=== PATIENT | female | born 1940 | race Caucasian/White ===

== ENCOUNTER → 2016-05-16 | Outpatient (CLI) | payer MEDICARE, MEDICAID, OTHER ==
[~2016-05-16] MED LIST: BARIUM SUSPENSION 105% (LIQUID POLIBAR PLUS) 240 ML/DOSE PO ONE; BARIUM SUSPENSION 2.1% (VANILLA SILQ) 450 ML PO ONE
--- OUTSIDE RECORDS SUMMARY | 2016-05-16 11:16 | XMS REPORT | Continuity of Care Document ---
Author Author [facility] Organization [facility] Address Unknown Phone Unavailable Care Team Providers Care Sterile Tech Name Role Phone No Pcp, Na PCP Unavailable Source Comments Some departments are not documenting in the electronic medical record. If you do not see the information that you expected, contact Release of Information in the Health Information Management department at [phone] for further assistance in locating additional records.[facility] Active Allergies and Adverse Reactions No Known Allergies Current Medications Prescription Sig. Disp. Refills Start End Date Status Date albuterol (VENTOLIN HFA, Inhale 2 Puffs by mouth Active PROAIR HFA, PROVENTIL into the lungs every 6 HFA) 90 mcg/actuation hours as needed for inhaler Wheezing or Shortness of Breath. Shake well before use. lisinopril/hydrochlorothi Take 1 Tab by mouth Active azide (ZESTORETIC) daily. 20/12.5 mg tablet 1 Tab fluticasone (FLONASE) 50 Apply 2 Sprays to each Active mcg/actuation nasal spray nostril as directed daily. Shake bottle gently before using. vancomycin (#) (VANCOCIN) 5 mL four times daily. 12/30/19 Active 25 mg/mL oral solution Last day 01/07 16 amLODIPine (NORVASC) 10 Take 1 Tab via feeding 90 Tab 3 12/30/19 Active mg tablet tube daily. 16 famotidine (PEPCID) 20 mg 1 Tab daily. Crush and 180 Tab 3 12/30/19 Active tablet administer via feeding 16 tube. carvedilol (COREG) 12.5 1 Tab twice daily with 12/30/19 Active mg tablet meals. Take with food. 16 Crush and administer via feeding tube. aspirin 325 mg tablet Take 1 Tab via feeding 90 Tab 3 12/30/19 Active tube daily. Take with 16 food. cetirizine (ZYRTEC) 10 mg Take 1 Tab via feeding 90 Tab 3 12/30/19 Active tablet tube every morning. 16 simvastatin (ZOCOR) 20 mg Take 1 Tab via feeding 90 Tab 3 12/30/19 Active tablet tube at bedtime daily. 16 insulin glargine (LANTUS Inject 18 Units under the 12/30/19 Active SOLOSTAR) 100 unit/mL (3 skin at bedtime daily. 16 mL) injection PEN doxazosin (CARDURA) 1 mg Take 2 Tabs by mouth 12/30/19 Active tablet daily. 16 gabapentin (NEURONTIN) Take 6 mL by mouth at 470 mL 12 12/30/19 Active 250 mg/5 mL oral solution bedtime daily. 16 albuterol 0.5% Inhale 0.5 mL solution by 60 Vial 12/30/19 Active (PROVENTIL; VENTOLIN) 2.5 nebulizer as directed 16 mg/0.5 mL nebulizer four times daily. solution ipratropium bromide Inhale 2.5 mL by mouth 60 Vial 12/30/19 Active (ATROVENT) 0.02 % into the lungs four times 16 nebulizer solution daily. Active Problems Problem Noted Date Cerebellar infarct ([facility]) 12/16/2015 Cerebral edema ([facility]) 12/16/2015 Vertebral artery stenosis with cerebral infarction ([facility]) 12/16/2015 Acute respiratory failure with hypoxemia ([facility]) 12/16/2015 Dysarthria 12/16/2015 Leukocytosis 12/16/2015 GLENNA (acute kidney injury) ([facility]) 12/16/2015 Hypernatremia 12/16/2015 Hyperchloremia 12/16/2015 Subdural hemorrhage ([facility]) 12/13/2015 DM (diabetes mellitus screen) 12/13/2015 HTN (hypertension) 12/13/2015 HLD (hyperlipidemia) 12/13/2015 GERD (gastroesophageal reflux disease) 12/13/2015 COPD (chronic obstructive pulmonary disease) ([facility]) CKD (chronic kidney disease) Social History Tobacco Use Types Packs/Day Years Used Date Current Every Day Smoker Cigarettes 0.9 60 Alcohol Use Drinks/Week oz/Week Comments No 0 Standard 0.0 drinks or equivalent Last Filed Vital Signs Vital Sign Reading Time Taken Blood Pressure 189/61 12/30/2015 7:44 AM CDT Pulse 75 12/30/2015 7:44 AM CDT Temperature 37.7 C (99.8 F) 12/30/2015 7:44 AM CDT Respiratory Rate - - Height 1.524 m (5') 12/15/2015 4:56 PM CDT Weight 78.6 kg (173 lb 4.5 oz) 12/30/2015 5:35 AM CDT Body Mass Index 33.84 12/30/2015 5:35 AM CDT Oxygen Saturation 94% 12/30/2015 7:44 AM CDT Plan of Care Health Maintenance Due Date Last Done Comments Physical (Comprehensive) 1949 Exam Pertussis Vaccine 1953 Tetanus Vaccine 12/02/1959 Breast Cancer Screening 1982 Colorectal Cancer 1992 Screening Shingles Vaccine 2002 Osteoporosis Screening 12/02/2007 Prevnar/Pneumovax (#1) 12/02/2007 Influenza Vaccine 11/26/2015 Results from Last 3 Months Not on file
--- NOTE | 2016-05-16 17:04 | Diagnostic Imaging Report ---
INDICATION: Dysphagia and history of non-Hodgkin's lymphoma. FINDINGS: The preliminary radiograph demonstrates a normal heart size. Lungs are clear. No pleural effusion or pneumothorax. Esophageal motility was assessed fluoroscopically. There is satisfactory efficacy of primary peristaltic wave. There are no intrinsic or extrinsic esophageal masses. There is a small hiatal hernia. There is no significant gastroesophageal reflux appreciated despite evocative maneuvers. IMPRESSION: Small hiatal hernia, otherwise, unremarkable esophagram. Dictated by: Dictated on workstation # [id number]
== END ==
LOC: RAD 11:12
PROVIDERS: ATTEND Family Medicine
DX: R13.10 Dysphagia, unspecified (principal); K44.9 Diaphragmatic hernia without obstruction or gangrene; Z93.0 Tracheostomy status
CPT/HCPCS: 74220

== ENCOUNTER → 2016-06-10 | Outpatient (CLI) | payer MEDICARE, OTHER ==
--- NOTE | 2016-06-10 11:48 | Diagnostic Imaging Report ---
EXAMINATION: Modified barium swallow. Indication: Dysphagia Different consistencies of fluid and food was given mixed with barium and swallowing was visualized under fluoroscopy. FLUOROSCOPY TIME: One minutes and 20 seconds FINDINGS: No aspiration seen. Mild transient penetration seen. IMPRESSION: No aspiration seen. Please refer to speech therapist's report for additional details . Dictated by: Dictated on workstation # [id number]
== END ==
LOC: RAD 09:50
PROVIDERS: ATTEND Family Medicine
DX: R13.10 Dysphagia, unspecified (principal); Z93.0 Tracheostomy status
CPT/HCPCS: 74230

== ENCOUNTER → 2016-06-14 | Outpatient (CLI) | payer MEDICARE, OTHER | PROVIDERS: ATTEND Family Medicine | DX: R19.7 Diarrhea, unspecified (principal) | CPT/HCPCS: 87324; 87449; 87493 ==

== ENCOUNTER 2016-07-03 07:56 | Emergency (ER) | payer MEDICARE, OTHER ==
[~2016-07-03] VITALS: Ht 162.6 cm; Wt 102.1 kg
[2016-07-03 07:56] VITALS: BP 0/0
[2016-07-03] MEDS ORDERED: NOREPINEPHRINE 4 MG/4 ML (LEVOPHED) AMP IV ONE (08:19)
[2016-07-03] MEDS ORDERED: D5W 250 ML (IVPB) 250 ML IV ONE (08:19)
[2016-07-03] MEDS ORDERED: EPINEPHrine 0.1 MG/ML 10 ML (HOSPIRA) SYR ONE (08:20)
[2016-07-03] MEDS ORDERED: NS 1000 ML IV BAG ONE (08:20)
[2016-07-03] MEDS ORDERED: SODIUM BICARB 8.4% 50 MEQ/50 ML (ABBOTT) SYR ONE (08:20)
[2016-07-03] MEDS ORDERED: CATHETER FLUSH 10 ML SYR ONE (08:20)
[2016-07-03] MEDS ORDERED: HEParin 1000 UNIT/ML (10ML VIAL) FOR BOLUS ONE (08:25)
[2016-07-03] MEDS ORDERED: HEParin DRIP 25000 UNIT/500ML 500 ML IV ONE (08:25)
[2016-07-03 08:37] LABS: ABG BASE EXCESS -9.2 MMOL/L (-2.5-2.5); ABG HCO3 22 MMOL/L (23-27); ABG OXYGEN SATURATION 83 % (94-100); ABG PO2 69 MMHG (79-93); ABG TCO2 25.5 MMOL/L (21.0-31.0)
[2016-07-03 08:39] LABS: ABG PCO2 104 MMHG (35-45); ABG PH 6.94 (7.37-7.43)
[2016-07-03 08:40] LABS: ALLENS TEST POS; PATIENT TEMP 95.9
[2016-07-03 08:42] LABS: BASOPHILS # (AUTO) 0.1 10^3/uL (0.0-0.1); BASOPHILS % (AUTO) 1 % (0-10); EOSINOPHILS # (AUTO) 0.1 10^3/uL (0.0-0.3); EOSINOPHILS % (AUTO) 0 % (0-10); LYMPHOCYTES # (AUTO) 4.2 X 10^3 (1.0-4.0); LYMPHOCYTES % (AUTO) 26 % (12-44); MEAN CORPUSCULAR HEMOGLOBIN 27 PG (25-34); MEAN CORPUSCULAR HGB CONC 30 G/DL (32-36); MEAN CORPUSCULAR VOLUME 89 FL (80-99); MEAN PLATELET VOLUME 10.5 FL (7.4-10.4); MONOCYTES # (AUTO) 0.9 X 10^3 (0.0-1.0); MONOCYTES % (AUTO) 5 % (0-12); NEUTROPHILS % (AUTO) 68 % (42-75); PLATELET COUNT 230 10^3/uL (130-400); RED BLOOD COUNT 3.17 10^6/uL (4.35-5.85); RED CELL DISTRIBUTION WIDTH 18.5 % (10.0-14.5); WHITE BLOOD COUNT 16.2 10^3/uL (4.3-11.0)
[2016-07-03 08:51] LABS: INR 1.8 (0.8-1.4); PROTHROMBIN TIME PATIENT 20.6 SEC (12.2-14.7)
[2016-07-03 08:54] LABS: BAND NEUTROPHILS 6 %; EOSINOPHILS % (MANUAL) 1 %; LYMPHOCYTES % (MANUAL) 23 %; NEUTROPHILS % (MANUAL) 57 %
[2016-07-03 09:01] LABS: ALBUMIN 2.2 G/DL (3.2-4.5); BILIRUBIN,TOTAL 0.3 MG/DL (0.1-1.0); CALCIUM 7.1 MG/DL (8.5-10.1); CREATININE SERUM 1.02 MG/DL (0.60-1.30); POTASSIUM 3.6 MMOL/L (3.6-5.0); TOTAL PROTEIN 4.5 G/DL (6.4-8.2)
--- NOTE | 2016-07-03 09:01 | ED CPR ---
HPI-CPR General Chief Complaint: Cardiac Arrest Stated Complaint: UNRESPONSIVE Source of Information: EMS, Family Exam Limitations: Other (intubated) History of Present Illness Time Seen by Provider: 07:53 Initial Comments The patient was brought to the ER by EMS in a state of cardiac arrest with chest compressions. History given that the patient was down at the longterm about 7:15 and I called CPR was initiated and an AED delivered shocks 1. EMS reports the patient's been in pulseless electrical activity and they have given 2 doses of epinephrine through an IO in the left tibia plateau. They have pushed 500 cc normal saline and given 1 amp of bicarbonate. The patient had a pertinent history of being in the longterm after a stroke in November 2015 of unknown etiology. The patient was currently being treated for C. difficile colitis. CODE STATUS was unknown and paperwork was not brought from the longterm by EMS. No family was present at that time. Witnessed Arrest: Yes Bystander CPR: Yes Down-Time Before ACLS: unknown Paramedics Initial Findings: No Pulse, No Respirations, PEA Tachycardia, Unresponsive Pre Hospital Treatment: CPR/Thumper, Defibrillation (by AED x1), Intubation ( combitube), Oxygen, IV Fluids (500cc), Epinephrine (mg) (2), Sodium Bicarb (amps ) (1) Allergies and Home Medications Allergies Coded Allergies: No Allergy Information Available (Unverified , 05/16/16) Review of Systems Constitutional: see HPI (Pt intubated and non responsive on arrival and unable to give an ROS) Physical Exam Vital Signs Vital Sign - Last 12Hours 07/03/16 07:56 Temp 95.9 Pulse 0 Resp 0 B/P (MAP) 0/0 Pulse Ox 0 Capillary Refill : General Appearance: Severe Distress, Other (PEA without spontaneous RR. ) HEENT: Other (Pupils equal 4 mm nonreactive and. No response to noxious stimuli. OG pulling Brown loose material as well as bright red blood) Neck: Full Range of Motion, Normal Inspection, Supple Respiratory: Lungs Clear, Other (Combitube in place with breath sounds bilaterally ventilated by bag valve mask.) Cardiovascular: Other (pulseless electrical activity with chest compressions per EMS and ED personnel) Gastrointestinal: Soft, Abnormal Bowel Sounds (absent), Distended Rectal: No Normal Rectal Tone, Heme Positive Stool Extremity: No Pedal Edema, Slow Capillary Refill Neurologic/Psychiatric: No Alert, No Oriented x3, Other (GCS 3) Skin: Normal Color, Warm/Dry Lymphatic: No Adenopathy Progress/Results/Core Measures Results/Orders Lab Results Laboratory Tests Test 07/03/16 08:09 07/03/16 08:15 07/03/16 08:30 Range/Units White Blood Count 16.2 H 4.3-11.0 10^3/uL Red Blood Count 3.17 L 4.35-5.85 10^6/uL Hemoglobin 8.5 L 11.5-16.0 G/DL Hematocrit 28 L 35-52 % Mean Corpuscular Volume 89 80-99 FL Mean Corpuscular Hemoglobin 27 25-34 PG Mean Corpuscular Hemoglobin Concent 30 L 32-36 G/DL Red Cell Distribution Width 18.5 H 10.0-14.5 % Platelet Count 230 130-400 10^3/uL Mean Platelet Volume 10.5 H 7.4-10.4 FL Neutrophils (%) (Auto) 68 42-75 % Lymphocytes (%) (Auto) 26 12-44 % Monocytes (%) (Auto) 5 0-12 % Eosinophils (%) (Auto) 0 0-10 % Basophils (%) (Auto) 1 0-10 % Neutrophils # (Auto) 11.0 H 1.8-7.8 X 10^3 Lymphocytes # (Auto) 4.2 H 1.0-4.0 X 10^3 Monocytes # (Auto) 0.9 0.0-1.0 X 10^3 Eosinophils # (Auto) 0.1 0.0-0.3 10^3/uL Basophils # (Auto) 0.1 0.0-0.1 10^3/uL Neutrophils % (Manual) 57 % Lymphocytes % (Manual) 23 % Monocytes % (Manual) 13 % Eosinophils % (Manual) 1 % Band Neutrophils 6 % Toxic Granulation 1+ Blood Morphology Comment NORMAL Sodium Level 146 H 135-145 MMOL/L Potassium Level 3.6 3.6-5.0 MMOL/L Chloride Level 117 H 98-107 MMOL/L Carbon Dioxide Level 10 L 21-32 MMOL/L Anion Gap 19 H 5-14 MMOL/L Blood Urea Nitrogen 19 H 7-18 MG/DL Creatinine 1.02 0.60-1.30 MG/DL Estimat Glomerular Filtration Rate 53 BUN/Creatinine Ratio 19 Glucose Level 183 H 70-105 MG/DL Calcium Level 7.1 L 8.5-10.1 MG/DL Total Bilirubin 0.3 0.1-1.0 MG/DL Aspartate Amino Transf (AST/SGOT) 67 H 5-34 U/L Alanine Aminotransferase (ALT/SGPT) 20 0-55 U/L Alkaline Phosphatase 76 40-136 U/L Total Protein 4.5 L 6.4-8.2 G/DL Albumin 2.2 L 3.2-4.5 G/DL Blood Gas Puncture Site RT RADIAL Blood Gas Patient Temperature 95.9 Arterial Blood pH 6.94 *L 7.37-7.43 Arterial Blood Partial Pressure CO2 104 *H 35-45 MMHG Arterial Blood Partial Pressure O2 69 L 79-93 MMHG Arterial Blood HCO3 22 L 23-27 MMOL/L Arterial Blood Total CO2 25.5 21.0-31.0 MMOL/L Arterial Blood Oxygen Saturation 83 L 94-100 % Arterial Blood Base Excess -9.2 L -2.5-2.5 MMOL/L Mac Test POS Blood Gas Ventilator Setting NO Blood Gas Inspired Oxygen 100% Prothrombin Time 20.6 H 12.2-14.7 SEC INR Comment 1.8 H 0.8-1.4 Activated Partial Thromboplast Time 53 H 24-35 SEC My Orders Orders - GILDA MENDOZA D5w 250 Ml (Ivpb) (Dextrose 5% Water Iv (07/03/16 08:19) Norepinephrine (Levophed) (07/03/16 08:19) Arterial Blood Gas (07/03/16 08:25) Cbc With Automated Diff (07/03/16 08:25) Comprehensive Metabolic Panel (07/03/16 08:25) Heparin (Bolus Per Protocol) (Heparin (B (07/03/16 08:25) Heparin Drip 98627 Unit/500ml (Heparin (07/03/16 08:25) Type And Screen (07/03/16 08:31) Partial Thromboplastin Time (07/03/16 08:34) Protime With Inr (07/03/16 08:34) Manual Differential (07/03/16 08:09) Medications Given in ED Current Medications Medications Dose Ordered Sig/Heide Route Start Time Stop Time Status Last Admin Dose Admin Dextrose/Water 250 ml @ STK-MED ONCE IV 07/03/16 08:19 07/03/16 08:22 DC 07/03/16 08:24 40 MLS/HR Norepinephrine 4 mg STK-MED ONCE IV 07/03/16 08:19 07/03/16 08:22 DC 07/03/16 08:24 4 MG Vital Signs/I&O Vital Sign - Last 12Hours 07/03/16 07:56 Temp 95.9 Pulse 0 Resp 0 B/P (MAP) 0/0 Pulse Ox 0 Critical Care Note Critical Care Start Time: 07:53 Stop Time: 08:43 Total Time (minutes) 50 minutes Date of : Jul 03, 2016 Time of : 08:43 Progress Patient was found approximately 710 at medical [facility] in [place] by staff and hypovolemia CPR was initiated as well as an IV was placed and 1 shock was advised and delivered before EMS arrived. EMS then continued CPR getting 2 doses of epinephrine 1 mg and 1 amp of bicarbonate en route to the ER. When she arrived the patient was actively undergoing ACLS protocol with a Combitube in place. We continued 1 mg IV epinephrine through the IO in her left tibial plateau every 3 minutes establish a new IV site in her right antecubital space and continued pushing fluids under pressure bag. She received one half liter prior to arrival. We replaced the Combitube with a more stable 7.5 ET tube at 22 at the lips with good bilateral breath sounds positive color change on capnography paper direct visualization using a guided video laryngoscope of this tube passing the larynx and vocal cords and no gas sounds on respiration by [id number] over the epigastrium. Patient's sats improved from 69% at that point up to the mid 80s which is as high as they ever got. Her abdomen was distended so a NG tube was dropped and placed to suction which pulled out copious amount of brown oral gastric secretions and eventually started showing bright red blood. The given history of C. difficile colitis under treatment as well as a stroke in November 2015 was reviewed. It was also noted the patient had scars from an old PEG tube and tracheostomy not currently in use and a scopolamine patch on her right side of her head behind the ear. A second amp of bicarbonate was given and the patient had return of spontaneous circulation at around epinephrine No. 7 (0816). Blood pressure is obtained 120s over 80s on the left arm. Capnography was initiated in the patient's respirations were transferred over to the ventilator. EKG obtained showed significant ST depression in anterior lateral leads labs were already obtained an ABG showed pH of 6.94. Levophed was initiated at 10 mcg/m and titrated up to a karena of 15. About this time the granddaughter arrived and I left speak with her. She explained that the patient's wishes were to be DO NOT RESUSCITATE and she was okay with what we have done to get her back but if the heart was to stop again the granddaughter agreed that the patient would not want to be resuscitated. At this time she wanted us to do everything we could to keep her alive. The very dire prognosis was explained to the family. She stated other family was on their way that would be an hour or more. Because of the ST depression and a troponin was obtained and fecal occult was positive and there is obvious logan blood coming from the OG tube so we typed and crossed her and prepared start her on a heparin drip to try and protect the heart. As we are trying to establish central line access as the only access we had was a right before meals 18-gauge and left tibial IO the patient bradyed down despite going up on the Levophed patient went back into asystole. At 0843 the patient had no heart tones, spontaneous respiration, reaction to corneal palpation or other signs of life and was thus declared and in accordance with her wishes to not be resuscitated we allow natural . Family was brought back and questions were answered. As other family members arrived appropriate accommodations were made and the [facility] Departure Communication Family Conversation Spoke extensively with the granddaughter and daughter and they seem to be in agreement that this was the patient's wishes. Questions were answered and accommodations made. Impression Impression: Primary Impression: Cardiac arrest Disposition: 20 Condition: Departure-Patient Inst. Decision time for Depature: 08:43 Referrals: PHAM DODSON MD (PCP/Family) Primary Care Physician Copy Copies To 1: PHAM DODSON MD, TITUS J Jul 03, 2016 09:01
--- OUTSIDE RECORDS SUMMARY | 2016-08-07 05:50 | XMS REPORT | Continuity of Care Document ---
Author Author [facility] Organization [facility] Address Unknown Phone Unavailable Care Team Providers Care Laborer [employer]crete [employer] Name Role Phone No Pcp, Na PCP Unavailable Source Comments Some departments are not documenting in the electronic medical record. If you do not see the information that you expected, contact Release of Information in the Health Information Management department at [phone] for further assistance in locating additional records.[facility] Active Allergies and Adverse Reactions No [...] Active Problems Problem Noted Date Cerebellar infarct ([facility]) 12/16/2015 Cerebral edema ([facility]) 12/16/2015 Vertebral artery stenosis with cerebral infarction ([facility]) 12/16/2015 Acute respiratory failure with hypoxemia ([facility]) 12/16/2015 Dysarthria 12/16/2015 Leukocytosis 12/16/2015 GLENNA (acute kidney injury) ([facility]) 12/16/2015 Hypernatremia 12/16/2015 Hyperchloremia 12/16/2015 Subdural hemorrhage ([facility]) 12/13/2015 DM (diabetes mellitus screen) 12/13/2015 HTN (hypertension) 12/13/2015 HLD (hyperlipidemia) 12/13/2015 GERD (gastroesophageal reflux disease) 12/13/2015 COPD (chronic obstructive pulmonary disease) ([facility]) CKD (chronic kidney disease) Social History [...] Screening 12/02/2007 Prevnar/Pneumovax (#1) 12/02/2007 Influenza Vaccine 11/25/2016 Results from Last 3 Months Not on file
== END 2016-07-03 10:55 | disposition expired ==
LOC: EDUNIT# 07:56 → ER 07:57
DX: I46.9 Cardiac arrest, cause unspecified (principal); A04.7 Enterocolitis due to Clostridium difficile; Z86.73 Personal history of transient ischemic attack (TIA), and cerebral infarction without residual deficits
CPT/HCPCS: 36415; 80053; 82805; 85007; 85025; 85027; 85610; 85730; 86850; 86900; 86901; 96374; 99283